=== PATIENT | female | born 1965 | race Caucasian/White ===

== ENCOUNTER 2018-11-13 11:34 | Emergency (ER) | payer OTHER, SELFPAY ==
[2018-11-13 11:46] VITALS: BP 91/66; PULSE 65; RESP 16; TEMP 36.5; O2SAT 96
--- NOTE | 2018-11-13 12:08 | DI.RAD_ITS ---
SYMPTOM/DIAGNOSIS: RT DISTAL ULNAR LESION, PAIN RIGHT WRIST: Three views were obtained. No fracture is seen. Bony alignment is within normal limits.
--- NOTE | 2018-11-13 12:14 | W.ED.GENAD ---
Discharge Plan Disposition Patient Disposition: HOME Condition: Good Discharge Details Chief Complaint: Orthopedic Clinical Impression: Arthritis of wrist Primary Care Provider: Hyacinth,Local ED Provider: Arturo Raymundo Home Meds and New Rx's Prescriptions: No Action trazodone 50 mg Tablet 50 mg PO QHS PRNRF: 0 levothyroxine [Synthroid] 100 mcg Tablet 100 mcg PO DAILY RF: 0 Discharge Instructions Instructions: Arthritis (ED) Additional Instructions: Please use Tylenol and Motrin as needed for pain. Please use the wrist splint as directed. Please follow-up in outpatient basis with an orthopedic doctor. You notice any worsening of her symptoms or any new symptoms such as fever, chills, swelling, redness please return immediately for reassessment. As always is a pleasure participating in your care today. Medical Decision Making This is a pleasant 52-year-old female with no significant past medical history who presents today for evaluation of mild occasional pain at the distal aspect of her right dominant hand at the ulna. Exam demonstrates no evidence of significant bony deformity or abnormality. No severe crepitus. No evidence of gout. No evidence of erythema suggestive of infection. Signs and symptoms very consistent with mild arthritis. We will get an x-ray to rule out acute fracture or cyst we will place the patient in a wrist splint, and recommend close outpatient follow-up. 2:15 PM X-ray results have returned, no evidence of acute fracture. Patient is still very concerned about her wrist pain, she is in the splint and this route does provide some relief. Recommend continued conservative management with NSAIDs and wrist splint, and if her symptoms do not improve with this and outpatient follow-up with orthopedics. 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 I have extensively reviewed the treatment plan and discharge instructions with the patient and their family. I have addressed all patient concerns at this time. The patient and family was made aware of what symptoms to monitor for that would warrant a return to the emergency department. Discussed the plan with the patient and family, they demonstrate verbal understanding and agreement with our assessment and plan at this time. TECHNIQUE: Imaging protocol: XR Right wrist. Views: 3 or more views. COMPARISON: No relevant prior studies available. FINDINGS: Bones/joints: There is no evidence of acute fracture.. There is no evidence of malalignment or dislocation. Soft tissues: Normal. IMPRESSION: There is no evidence of acute fracture.. Thank you for allowing us to participate in the care of your patient. Dictated and Authenticated by: David Timmons MD [facility] General Date/Time Provider Initiated Documentation: 11/13/18 11:41. HPI Narrative: This is a 52-year-old female with no significant past medical history except for tyroid disease, who presents today for evaluation of lesion on her right distal ulna. The patient states that for the last month or 2 she has noticed some mild achiness in the medial aspect of her distal ulna worse with movement, and only occasional presenting itself. No particular aggravating factors. She is right-hand dominant. She denies any trauma or other lesions. She has noticed a small bulge at the distal ulna, and is unsure when this came about. She denies any fever, chills, or other complaints. Related Data Home Medications Medication Instructions Recorded Confirmed levothyroxine [Synthroid] 100 mcg PO DAILY 11/13/18 11/13/18 trazodone 50 mg PO QHS PRN 11/13/18 11/13/18 Allergies Allergy/AdvReac Type Severity Reaction Status Date / Time Sulfa (Sulfonamide Allergy Unknown Unverified 11/13/18 11:51 Antibiotics) General Stated Complaint: Orthopedic ASHISH: 4 Review of Systems Review of Systems All systems reviewed & are unremarkable except as noted in HPI and below PFSH Social History Smoking/Tobacco Use Status: Former Tobacco Use Alcohol Intake: current Alcohol Intake frequency: a few times a month Alcohol type: wine Drug use: Never Do you feel safe at home: Yes Do you feel safe in your relationship?: Yes Exam Narrative Exam Narrative: 1.Const: Well-nourished, Well-developed, appearing stated age 2.Eyes: PERRL, no conjunctival injection, and symmetrical lids. 3.ENT: Atraumatic external nose and ears. Moist MM. Neck: Symmetric, trachea midline, No thyromegaly. 4.CVS: +S1/S2, No murmurs or gallops. Peripheral pulses 2+ and equal in all extremities. Brisk capillary refill in all extremities. 5.RESP: Unlabored respiratory effort. Clear to auscultation bilaterally. No wheezes rales or rhonchi 6.GI: Soft, Nontender/Nondistended, No hepatosplenomegaly. No guarding or rebound. 7.MSK: Normocephalic/Atraumatic, Extremities w/o deformity or ttp No cyanosis or clubbing, Normal movement of all extremities. Symmetrically palpable radial and ulnar pulses. Capillary refill less than 2 seconds to all digits. Right hand: Intact sensation to light touch of the radial, median and ulnar nerves demonstrated by testing in the dorsal web space of the thumb, the distal palmar aspect of the index finger, and the lateral surface of the fifth finger. 2 point discrimination intact to 5mm (up to 6mm can be normal in digits 3-5) of discrimination in the affected digit. Intact motor function of the radial, median and ulnar nerves demonstrated by strength of extension of the isolated distal joint of the index finger, hand rn immunology, and spreading of the 2nd through 5th digits. Intact recurrent median nerve as demonstrated by ability to move thumb fully through opposition, abduction and flexion. No snuffbox tenderness. No reproducible tenderness over the distal ulna. Distal ulna is slightly more pronounced compared to the distal ulna on the left peer 8.Skin: Warm, Dry. No rashes or lesions. 9.Neuro: biology manager II-XII grossly intact. Sensation grossly intact, no focal neurologic deficits. 10.Psych: (AAO) x3. Appropriate mood and affect Course Vital Signs Temperature 36.5 C 11/13/18 11:46 Pulse 65 11/13/18 11:46 Respiratory Rate 16 11/13/18 11:46 Blood Pressure 91/66 L 11/13/18 11:46 Pulse Oximetry 96 11/13/18 11:46 Temperature 36.5 C 11/13/18 11:46 Temperature Source Temporal Artery Scan 11/13/18 11:46 Pulse 65 11/13/18 11:46 Respiratory Rate 16 11/13/18 11:46 Respiratory Effort 11/13/18 11:50 Blood Pressure 91/66 L 11/13/18 11:46 Blood Pressure Position Sitting 11/13/18 11:46 Pulse Oximetry 96 11/13/18 11:46 Oxygen Delivery Method Room Air 11/13/18 11:46 Oxygen Flow Rate 0 11/13/18 11:46 Pain Level 4 11/13/18 11:53
--- NOTE | 2018-11-13 12:21 | ED.GENADUL_ITS ---
Discharge Plan Disposition Patient Disposition: HOME Condition: Good Discharge Details Chief Complaint: Orthopedic Clinical Impression: Arthritis of wrist Primary Care Provider: Hyacinth,Local ED Provider: Arturo Raymundo Home Meds and New Rx's Prescriptions: No Action trazodone 50 mg Tablet 50 mg PO QHS PRNRF: 0 levothyroxine [Synthroid] 100 mcg Tablet 100 mcg PO DAILY RF: 0 Discharge Instructions Instructions: Arthritis (ED) Additional Instructions: Please use Tylenol and Motrin as needed for pain. Please use the wrist splint as directed. Please follow-up in outpatient basis with an orthopedic doctor. You notice any worsening of her symptoms or any new symptoms such as fever, chills, swelling, redness please return immediately for reassessment. As always is a pleasure participating in your care today. Medical Decision Making This is a pleasant 52-year-old female with no significant past medical history who presents today for evaluation of mild occasional pain at the distal aspect of her right dominant hand at the ulna. Exam demonstrates no evidence of significant bony deformity or abnormality. No severe crepitus. No evidence of gout. No evidence of erythema suggestive of infection. Signs and symptoms very consistent with mild arthritis. We will get an x-ray to rule out acute fracture or cyst we will place the patient in a wrist splint, and recommend close outpatient follow-up. 2:15 PM X-ray results have returned, no evidence of acute fracture. Patient is still very concerned about her wrist pain, she is in the splint and this route does provide some relief. Recommend continued conservative management with NSAIDs and wrist splint, and if her symptoms do not improve with this and outpatient follow-up with orthopedics. 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 I have extensively reviewed the treatment plan and discharge instructions with the patient and their family. I have addressed all patient concerns at this time. The patient and family was made aware of what symptoms to monitor for that would warrant a return to the emergency department. Discussed the plan with the patient and family, they demonstrate verbal understanding and agreement with our assessment and plan at this time. TECHNIQUE: Imaging protocol: XR Right wrist. Views: 3 or more views. COMPARISON: No relevant prior studies available. FINDINGS: Bones/joints: There is no evidence of acute fracture.. There is no evidence of malalignment or dislocation. Soft tissues: Normal. IMPRESSION: There is no evidence of acute fracture.. Thank you for allowing us to participate in the care of your patient. Dictated and Authenticated by: David Timmons MD [facility] General Date/Time Provider Initiated Documentation: 11/13/18 11:41 . HPI Narrative: This is a 52-year-old female with no significant past medical history except for tyroid disease, who presents today for evaluation of lesion on her right distal ulna. The patient states that for the last month or 2 she has noticed some mild achiness in the medial aspect of her distal ulna worse with mo vement, and only occasional presenting itself. No particular aggravating factors. She is right-hand dominant. She denies any trauma or other lesions. She has noticed a small bulge at the distal ulna, and is unsure when this came about. She denies any fever, chills, or other complaints. Related Data Home Medications Medication Instructions Recorded Confirmed levothyroxine [Synthroid] 100 mcg PO DAILY 11/13/18 11/13/18 trazodone 50 mg PO QHS PRN 11/13/18 11/13/18 Allergies Allergy/AdvReac Type Severity Reaction Status Date / Time Sulfa (Sulfonamide Allergy Unknown Unverified 11/13/18 11:51 Antibiotics) General Stated Complaint: Orthopedic ASHISH: 4 Review of Systems Review of Systems All systems reviewed & are unremarkable except as noted in HPI and below PFSH Social History Smoking/Tobacco Use Status: Former Tobacco Use Alcohol Intake: current Alcohol Intake frequency: a few times a month Alcohol type: wine Drug use: Never Do you feel safe at home: Yes Do you feel safe in your relationship?: Yes Exam Narrative Exam Narrative: 1.Const: Well-nourished, Well-developed, appearing stated age 2.Eyes: PERRL, no conjunctival injection, and symmetrical lids. 3.ENT: Atraumatic external nose and ears. Moist MM. Neck: Symmetric, trachea midline, No thyromegaly. 4.CVS: +S1/S2, No murmurs or gallops. Peripheral pulses 2+ and equal in all extremities. Brisk capillary refill in all extremities. 5.RESP: Unlabored respiratory effort. Clear to auscultation bilaterally. No wheezes rales or rhonchi 6.GI: Soft, Nontender/Nondistended, No hepatosplenomegaly. No guarding or rebound. 7.MSK: Normocephalic/Atraumatic, Extremities w/o deformity or ttp No cyanosis or clubbing, Normal movement of all extremities. Symmetrically palpable radial and ulnar pulses. Capillary refill less than 2 seconds to all digits. Right hand: Intact sensation to light touch of the radial, median and ulnar nerves demonstrated by testing in the dorsal web space of the thumb, the distal palmar aspect of the index finger, and the lateral surface of the fifth finger. 2 point discrimination intact to 5mm (up to 6mm can be normal in digits 3-5) of discrimination in the affected digit. Intact motor function of the radial, median and ulnar nerves demonstrated by strength of extension of the isolated distal joint of the index finger, hand instructor psychiatric aide, and spreading of the 2nd through 5th digits. Intact recurrent median nerve as demonstrated by ability to move thumb fully through opposition, abduction and flexion. No snuffbox tenderness. No reproducible tenderness over the distal ulna. Distal ulna is slightly more pronounced compared to the distal ulna on the left peer 8.Skin: Warm, Dry. No rashes or lesions. 9.Neuro: equity manager II-XII grossly intact. Sensation grossly intact, no focal neurologic deficits. 10.Psych: (AAO) x3. Appropriate mood and affect Course Vital Signs Temperature 36.5 C 11/13/18 11:46 Pulse 65 11/13/18 11:46 Respiratory Rate 16 11/13/18 11:46 Blood Pressure 91/66 L 11/13/18 11:46 Pulse Oximetry 96 11/13/18 11:46 Temperature 36.5 C 11/13/18 11:46 Temperature Source Temporal Artery Scan 11/13/18 11:46 Pulse 65 11/13/18 11:46 Respiratory Rate 16 11/13/18 11:46 Respiratory Effort 11/13/18 11:50 Blood Pressure 91/66 L 11/13/18 11:46 Blood Pressure Position Sitting 11/13/18 11:46 Pulse Oximetry 96 11/13/18 11:46 Oxygen Delivery Method Room Air 11/13/18 11:46 Oxygen Flow Rate 0 11/13/18 11:46 Pain Level 4 11/13/18 11:53
--- NOTE | 2018-11-13 14:08 | DI.VRAD_ITS ---
EXAM: XR Right Wrist Complete, 3 or more Views EXAM DATE/TIME: 11/13/2018 12:10 PM CLINICAL HISTORY: 52 years old, female; Signs and symptoms; Other: Right distal ulnar lesion; Additional info: Right distal ulnar lesion, pain for 1 month TECHNIQUE: Imaging protocol: XR Right wrist. Views: 3 or more views. COMPARISON: No relevant prior studies available. FINDINGS: Bones/joints: There is no evidence of acute fracture.. There is no evidence of malalignment or dislocation. Soft tissues: Normal. IMPRESSION: There is no evidence of acute fracture.. Dictated and Authenticated by: David Timmons MD. Ordering:SAILAJA Morris MD
== END 2018-11-13 14:13 | disposition home or self-care (01) ==
PROVIDERS: Emergency Provider Student in an Organized Health Care Education/Training Program
DX: M19.031 Primary osteoarthritis, right wrist (principal)
CPT/HCPCS: 29125; 99283; 73110; L3908

== ENCOUNTER 2019-02-27 11:07 | Emergency (ER) | payer OTHER, SELFPAY ==
[2019-02-27 11:18] VITALS: BP 107/73; PULSE 74; RESP 14; TEMP 36.8; O2SAT 96
--- NOTE | 2019-02-27 11:37 | ED.GENADUL_ITS ---
Discharge Plan Disposition Patient Disposition: HOME Condition: Stable Discharge Details Chief Complaint: Orthopedic Clinical Impression: Ankle injury Primary Care Provider: Hyacinth,Local ED Provider: Sherry Fuentes Home Meds and New Rx's Prescriptions: No Action trazodone 50 mg Tablet 50 mg PO QHS PRNRF: 0 levothyroxine [Synthroid] 100 mcg Tablet 100 mcg PO DAILY RF: 0 Discharge Instructions Instructions: Ankle Sprain (ED), Crutch Instructions (ED) Additional Instructions: Please return immediately to the emergency department if you develop any new or worsening symptoms or if you become otherwise concerned. It is extremely important that you call as soon as possible to make an appointment to be seen in follow-up for this visit by your primary care doctor. Discharge Data Discharge Date/Time-TO BE ENTERED AT DEPARTURE: 02/27/19 13:21 Medical Decision Making Elder Pierce is a 53 y/o woman with h/o thyroid disease who presented to the emergency department with left ankle pain after inverting her ankle at 8 AM this morning, she has continued to be weightbearing. On exam patient is well and nontoxic, there is tenderness and edema of the left lateral ankle and dorsal aspect of the left foot. Concern for possible fracture versus sprain. Plan for x-rays ankle and foot. X-rays negative for fracture. Plan for ankle brace, crutches. I had a lengthy discussion with the patient regarding return to emergency department precautions, home care, importance of outpatient follow-up. Patient verbalized understanding the plan was amenable. All questions were answered. Patient was discharged home with clear plan for outpatient follow-up. Medical Records Medical records reviewed: Yes I reviewed the patient's medical records. Imaging Data Radiologic Study: Attestation: I personally reviewed and interpreted this imaging study as follows: Radiologist's impression: LEFT ANKLE: Three views were obtained. The ankle mortise appears well maintained. No fracture is seen. LEFT FOOT: Three views were obtained. There are ossific densities adjacent to the lateral aspect of the cuboid which are likely to represent chronic findings. No acute fracture is seen involving the foot. HPI General Mode of arrival: ambulatory . Date/Time Provider Initiated Documentation: 02/27/19 11:37 . Limitations to Documentation: no limitations . Information obtained by: patient, RN notes reviewed and old records reviewed . HPI Narrative: Elder Pierce is a 53 y/o woman with h/o thyroid disease presenting to the emergency room with ankle pain. Patient reports that at approximately 8 AM this morning she stepped forward and inverted her left ankle. Patient reports that she had sudden onset of pain over the top of her foot and over the lateral aspect of her left ankle. She did not fall, she denies any other injury or pain. Patient reports that she has been walking since that time, however her pain has been increasing. She denies swelling other than to the left ankle, skin wound, any symptoms prior to the inversion, numbness, weakness, skin rash. Patient reports that she was previously very well in her usual state of health. Patient denies having symptoms prior to stepping funny, that rolling her foot was mechanical secondary to uneven ground. Related Data Home Medications Medication Instructions Recorded Confirmed levothyroxine [Synthroid] 100 mcg PO DAILY 11/13/18 02/27/19 trazodone 50 mg PO QHS PRN 11/13/18 02/27/19 Allergies Allergy/AdvReac Type Severity Reaction Status Date / Time Sulfa (Sulfonamide Allergy Unknown Unverified 02/27/19 11:23 Antibiotics) General Stated Complaint: Orthopedic ASHISH: 4 Review of Systems Review of Systems Constitutional: denies fevers Eyes: denies eye pain ENT: denies facial pain, sore throat Cardiovascular: denies chest pain Respiratory: denies SOB GI: denies abdominal pain, vomiting : denies flank pain MSK: denies back pain, neck pain, reports left ankle pain Skin: denies rash Neuro: denies headaches, numbness, weakness [facility] Social History Smoking/Tobacco Use Status: Former Tobacco Use Alcohol Intake: current Alcohol Intake frequency: a few times a month Alcohol type: wine Drug use: Never Do you feel safe at home: Yes Do you feel safe in your relationship?: Yes Exam Narrative Exam Narrative: Constitutional: well and [id number], pleasant, convers ing normally HENT: head atraumatic/normocephalic/normal inspection, mucous membranes moist Eyes: conjunctiva normal, sclera normal, pupils 3mm b/l Neck: no stridor, normal ROM, trachea midline Resp: normal work of breathing Cardio: normal rate, normal rhythm Skin: warm, dry, normal color, no rash Neuro: alert, not altered, grossly non-focal, normal tone Ext: Edema over the lateral aspect of the left ankle and dorsal aspect of the left foot, mild ecchymosis over the left lateral ankle. DP pulses intact and symmetric. Brisk cap refill of the toes. Normal range of motion of the toes. Range of motion of left ankle somewhat limited secondary to pain. No tenderness palpation of the proximal tibia/fibula. No apparent skin wound. Psych: normal mood, normal affect, normal behavior Course Vital Signs Temperature 36.8 C 02/27/19 11:18 Pulse 74 02/27/19 11:18 Respiratory Rate 14 02/27/19 11:18 Blood Pressure 107/73 02/27/19 11:18 Pulse Oximetry 96 02/27/19 11:18 Temperature 36.8 C 02/27/19 11:18 Temperature Source Skin 02/27/19 11:18 Pulse 74 02/27/19 11:18 Respiratory Rate 14 02/27/19 11:18 Respiratory Effort 02/27/19 11:23 Blood Pressure 107/73 02/27/19 11:18 Blood Pressure Position Sitting 02/27/19 11:18 Pulse Oximetry 96 02/27/19 11:18 Oxygen Delivery Method Room Air 02/27/19 11:18 Oxygen Flow Rate 0 02/27/19 11:18 Pain Level 4 02/27/19 11:18 Comment ice after injury and took 1 aleve 45 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
--- NOTE | 2019-02-27 11:47 | DI.RAD_ITS ---
SYMPTOM/DIAGNOSIS: TRAUMA,LT ANKLE PAIN,LT FOOT PAIN LEFT ANKLE: Three views were obtained. The ankle mortise appears well maintained. No fracture is seen. LEFT FOOT: Three views were obtained. There are ossific densities adjacent to the lateral aspect of the cuboid which are likely to represent chronic findings. No acute fracture is seen involving the foot.
== END 2019-02-27 13:21 | disposition home or self-care (01) ==
PROVIDERS: Emergency Provider Student in an Organized Health Care Education/Training Program
DX: S99.912A Unspecified injury of left ankle, initial encounter (principal); X50.9XXA Other and unspecified overexertion or strenuous movements or postures, initial encounter
CPT/HCPCS: 29515; 99284; 73610; 73630; 99283; E0114; L1902

== ENCOUNTER 2020-01-24 15:18 | Emergency (ER) | payer OTHER, SELFPAY ==
[2020-01-24 15:22] VITALS: BP 104/66; PULSE 81; RESP 16; TEMP 36.7; O2SAT 98
--- NOTE | 2020-01-24 15:30 | DI.RAD_ITS ---
EXAM: XR TOE LT SECOND CLINICAL HISTORY: L 2nd toe pain TECHNIQUE: COMPARISON: No exams were available for comparison FINDINGS: Three views were obtained. There is soft tissue swelling of the 2nd. Toe. There is no evidence of fracture. No erosive process seen. IMPRESSION:
--- NOTE | 2020-01-24 15:59 | W.ED.GENAD ---
Discharge Plan Disposition Patient Disposition: HOME Condition: Stable Discharge Details Chief Complaint: Orthopedic Clinical Impression: Pain and swelling of toe of left foot Primary Care Provider: Hyacinth,Local ED Provider: Alexa Muller Home Meds and New Rx's Prescriptions: New cephalexin [Keflex] 500 mg capsule 500 mg PO QID 7 Days Qty: 28 RF: 0 hydrocortisone 2.5 % ointment 1 applic TP BID Qty: 28.35 RF: 0 Continued trazodone 50 mg Tablet 50 mg PO QHS PRNRF: 0 levothyroxine [Synthroid] 100 mcg Tablet 100 mcg PO DAILY RF: 0 Discharge Instructions Instructions: Swollen Joint (ED) Additional Instructions: Rest and elevate the affected area as much as possible. Avoid wearing shoes while symptoms present and wear sandals or keep the area open to air as much as possible. Alternate tylenol and motrin as needed and directed for pain. If you have no relief or worsening of toe pain, redness or swelling, you can start the oral antibiotics. Call the transaction processor Dr. Mirza''s office tomorrow to schedule a follow-up appointment for reevaluation. Referrals: Fly Mirza DPM [[facility] STAFF PHYSICIAN] - Discharge Data Discharge Physician: Alexa Muller Medical Decision Making 54-year-old female presents with left second toe pain and swelling for the past month. Denies fever. Left second toe with minimal edema and tenderness to palpation. No erythema, ecchymosis, rash or lesions. Does not appear consistent with cellulitis. No deformity. She appears nontoxic. Referred for x-ray which noted soft tissue swelling but no other acute findings. Discussed with patient that differential diagnosis includes early cellulitis, neuropathy, stress fracture, tinea pedis, etc. Do not see an indication for labs or imaging. Will give a prescription for Keflex if symptoms do not improve or worsen. She was advised to call Dr. Mirza for follow-up. Patient also requested a prescription for hydrocortisone ointment for a chronic hand rash. There is no evidence of cellulitis. HPI General Mode of arrival: ambulatory. Date/Time Provider Initiated Documentation: 01/24/20 15:18. Limitations to Documentation: no limitations. Information obtained by: patient. HPI Narrative: Patient is a 54-year-old female who presents the ED with complaint of left second toe pain and swelling for the past month, getting progressively worse. She states it is most uncomfortable when she is wearing a shoe and it is rubbing up against it. She denies any known fever, injury, new exposures. Related Data Home Medications Medication Instructions Recorded Confirmed levothyroxine [Synthroid] 100 mcg PO DAILY 11/13/18 01/24/20 trazodone 50 mg PO QHS PRN 11/13/18 01/24/20 cephalexin [Keflex] 500 mg PO QID 7 Days #28 cap 01/24/20 hydrocortisone 1 applic TP BID #28.35 gm 01/24/20 Previous Rx's Medication Instructions Recorded cephalexin [Keflex] 500 mg PO QID 7 Days #28 cap 01/24/20 hydrocortisone 1 applic TP BID #28.35 gm 01/24/20 Allergies Allergy/AdvReac Type Severity Reaction Status Date / Time Sulfa (Sulfonamide Allergy Unknown Unverified 01/24/20 15:26 Antibiotics) General Stated Complaint: Orthopedic ASHISH: 4 Review of Systems All systems reviewed & are unremarkable except as noted in HPI and below Constitutional Constitutional: Reports as per HPI, Denies chills and Denies fever(s) Eyes Eyes: Denies blurry vision ENT Ears, Nose, Mouth, and Throat: Denies dizziness, Denies sore throat and Denies throat swelling Cardiovascular Cardiovascular: Denies chest pain and Denies dyspnea Respiratory Respiratory: Denies cough and Denies dyspnea Gastrointestinal Gastrointestinal: Denies abdominal pain, Denies diarrhea and Denies vomiting Genitourinary Genitourinary: Denies hematuria and Denies dysuria Musculoskeletal Musculoskeletal: Denies back pain and Denies numbness Integumentary/Breasts Skin/Breast: Denies lesions and Denies rash Neurologic Neurologic: Denies dizziness, Denies localized weakness and Denies numbness Allergic/Immunologic Allergic/Immunologic: Denies throat swelling [facility] Medical History (Updated 01/24/20 @ 16:33 by Alexa Muller DO) Hypothyroidism (Chronic) Social History Smoking/Tobacco Use Status: Former Tobacco Use Alcohol Intake: current Alcohol Intake frequency: a few times a month Alcohol type: wine Drug use: Never Substance use type: does not use Do you feel safe at home: Yes Do you feel safe in your relationship?: Yes Exam Const General: cooperative, healthy appearing and no acute distress HENMT Head: normal to inspection Mouth: oral mucosae normal Eyes General: appearance normal, both eyes and all related structures Neck Neck: normal visual inspection Resp Effort & Inspection: normal respiratory effort and able to speak in complete sentences Cardio Rate: regular rate Skin General skin exam: no rashes or lesions noted Neuro General: patient alert, patient awake, patient oriented x3 and no focal motor deficits Motor: muscle tone normal throughout Sensory Exam: no sensory deficits noted Extrem Ankle/foot/toe images: 1. Minimal edema and tenderness to palpation noted to distal left second toe there is some minimal skin breakdown but no significant scaling, rash, lesions, erythema, ecchymosis. Psych Appearance: grossly normal Affect: normal affect Course Vital Signs Vital signs: Vital Signs Temperature 98.1 F 01/24/20 15:22 Pulse 81 01/24/20 15:22 Respiratory Rate 16 01/24/20 15:22 Blood Pressure 104/66 01/24/20 15:22 Pulse Oximetry 98 01/24/20 15:22 Temperature 98.1 F 01/24/20 15:22 Temperature Source Skin 01/24/20 15:22 Pulse 81 01/24/20 15:22 Respiratory Rate 16 01/24/20 15:22 Respiratory Effort Non-Labored 01/24/20 15:22 Blood Pressure 104/66 01/24/20 15:22 Blood Pressure Position Sitting 01/24/20 15:22 Pulse Oximetry 98 01/24/20 15:22 Oxygen Delivery Method Room Air 01/24/20 15:22 Oxygen Flow Rate 0 01/24/20 15:22 Pain Level 10 01/24/20 15:22
--- NOTE | 2020-01-24 16:13 | DI.VRAD_ITS ---
PROCEDURE INFORMATION: Exam: XR Left Toe(s) Exam date and time: 01/24/2020 4:07 PM Age: 54 years old Clinical indication: Other: Lt 2nd toe pain TECHNIQUE: Imaging protocol: XR Left toes. Views: Minimum 2 views. COMPARISON: CR XR ANKLE LT COMPLETE 02/27/2019 12:32 PM FINDINGS: Bones/joints: Normal. Soft tissues: Soft tissue edema. IMPRESSION: Soft tissue edema. No fractures. No osteomyelitis. Dictated and Authenticated by: Kori Mancia MD. Ordering:CHERY Liu MD
== END 2020-01-24 17:00 | disposition home or self-care (01) ==
PROVIDERS: Emergency Provider Physician Assistant
DX: M79.675 Pain in left toe(s) (principal); M79.89 Other specified soft tissue disorders
CPT/HCPCS: 99283; 73660

== ENCOUNTER 2022-01-22 07:56 | Emergency (ER) | payer OTHER, SELFPAY ==
[2022-01-22 08:16] VITALS: BP 91/64; PULSE 64; RESP 16; TEMP 36.8; O2SAT 98
--- NOTE | 2022-01-22 08:53 | DI.RAD_ITS ---
Exam(s) XR FINGER RT INDEX EXAM: XR FINGER RT INDEX CLINICAL HISTORY: finger laceration over pip joint, now swollen/pain. TECHNIQUE: 2D digital imaging was performed of the right finger. Three views were obtained. PA/AP, oblique, and lateral views were obtained. COMPARISON: No exams were available for comparison FINDINGS: BONES: No acute fracture is present. No bony destructive lesion is seen. JOINTS: No dislocation present. SOFT TISSUE: Normal. IMPRESSION: No evidence of acute fracture, dislocation, or subluxation. DATA REPOSITORY: RADIATION DOSE DELIVERED:
[2022-01-22] MEDS: Tetanus & Diphtheria Tox,ADULT 0.5 ML VIAL IM (09:23)
--- NOTE | 2022-01-22 15:17 | W.ED.GENAD ---
Discharge Plan Disposition Patient Disposition: HOME Condition: Stable Discharge Details Clinical Impression: Cellulitis, Finger laceration Primary Care Provider: Hyacinth,Local ED Provider: Ruby Cooper Home Meds and New Rx's Prescriptions: New cephalexin 500 mg capsule 500 mg PO Q6H 7 Days Qty: 28 0RF Continued hydrocortisone 2.5 % ointment 1 applic TP BID Qty: 28.35 0RF alprazolam 0.5 mg tablet 0.5 mg PO PRN PRN Label Comments: TAKE ONE TABLET BY MOUTH EVERY DAY rizatriptan 10 mg tablet,disintegrating 10 mg PO PRN PRN trazodone 50 mg Tablet 50 mg PO QHS PRN levothyroxine [Synthroid] 100 mcg Tablet 100 mcg PO DAILY Discharge Instructions Instructions: Cellulitis (ED), Finger Laceration (ED) Additional Instructions: keep splint in place call ortho if you don't hear from them tomorrow take antibiotic yogurt daily while on antibiotic return earlier with new or worsening complaints Referrals: Marques Begum MD [ [facility] STAFF PHYSICIAN] - Discharge Data Discharge Date/Time-TO BE ENTERED AT DEPARTURE: 01/22/22 14:28 Medical Decision Making X-ray does not show evidence of acute abnormality Placed on Keflex and referral to orthopedics Patient has mildly decreased flexion of her finger, likely secondary to soft tissue swelling there is concern for intra-articular injury Will start patient on Keflex and placed in splint and referred to orthopedics for reassessment Afebrile and nontoxic Medical Records Medical records reviewed: Yes I reviewed the patient's medical records. HPI General Date/Time Provider Initiated Documentation: 01/22/22 08:18. HPI Narrative: This 56-year-old female presents with right finger pain. She is she received a laceration approximately 3 weeks ago on a piece of plastic that was in the trash. Patient reportedly cleaned wound and splinted it. She states it started becoming red and more painful in the past 3 days. She has any fever or chills. Unsure regarding tetanus. Related Data Home Medications Medication Instructions Recorded Confirmed levothyroxine 100 mcg tablet 100 mcg PO DAILY 11/13/18 01/22/22 (Synthroid) trazodone 50 mg tablet 50 mg PO QHS PRN 11/13/18 01/22/22 hydrocortisone 2.5 % topical 1 applic topical BID #28.35 grams 01/24/20 01/22/22 ointment alprazolam 0.5 mg tablet 0.5 mg PO PRN PRN 01/22/22 01/22/22 cephalexin 500 mg capsule 500 mg PO Q6H 7 days #28 caps 01/22/22 rizatriptan 10 mg disintegrating 10 mg PO PRN PRN 01/22/22 01/22/22 tablet Previous Rx's Medication Instructions Recorded hydrocortisone 2.5 % topical 1 applic topical BID #28.35 grams 01/24/20 ointment cephalexin 500 mg capsule 500 mg PO Q6H 7 days #28 caps 01/22/22 Allergies Allergy/AdvReac Type Severity Reaction Status Date / Time Sulfa (Sulfonamide Allergy Unknown Unverified 01/22/22 08:23 Antibiotics) General Stated Complaint: Orthopedic ASHISH: 4 Review of Systems All systems reviewed & are unremarkable except as noted in HPI and below PFSH All Active Problems Cellulitis (Acute) Finger laceration (Acute) Medical History Hypothyroidism Social History Smoking/Tobacco Use Status: Former Tobacco Use Smoking risk assessment performed?: Yes Alcohol Intake: current Alcohol Intake frequency: a few times a month Alcohol type: wine Drug use: Never Substance use type: does not use Do you feel safe at home: Yes Do you feel safe in your relationship?: Yes Exam Const General: cooperative, comfortable and no acute distress Extrem Hand/finger images: 1. Swelling, tenderness, mildly decreased range of motion, brisk cap refill distally, sensation intact distally, no lymphangitis or crepitus Course Vital Signs Vital signs: Vital Signs Temperature 36.8 C 01/22/22 08:16 Pulse 64 01/22/22 08:16 Respiratory Rate 16 01/22/22 08:16 Blood Pressure 91/64 L 01/22/22 08:16 Pulse Oximetry 98 01/22/22 08:16 Temperature 36.8 C 01/22/22 08:16 Pulse 64 01/22/22 08:16 Respiratory Rate 16 01/22/22 08:16 Respiratory Effort 01/22/22 08:25 Blood Pressure 91/64 L 01/22/22 08:16 Pulse Oximetry 98 01/22/22 08:16 Pain Level 1 01/22/22 08:25 Comment 01/22/22 08:16
== END 2022-01-22 14:28 | disposition home or self-care (01) ==
PROVIDERS: Emergency Provider Physician Assistant
DX: L03.011 Cellulitis of right finger (principal); S61.210A Laceration without foreign body of right index finger without damage to nail, initial encounter; Z87.891 Personal history of nicotine dependence; W26.8XXA Contact with other sharp object(s), not elsewhere classified, initial encounter
CPT/HCPCS: 29130; 90471; 99283; 73140

== ENCOUNTER 2022-01-29 13:26 | Emergency (ER) | payer OTHER, SELFPAY ==
[2022-01-29 13:44] VITALS: BP 95/65; PULSE 70; RESP 16; TEMP 37.3; O2SAT 99
--- NOTE | 2022-01-29 14:08 | ED.GENADUL_ITS ---
Discharge Plan Disposition Patient Disposition: HOME Condition: Stable Discharge Details Clinical Impression: Encounter for wound re-check Primary Care Provider: HyacinthLocal ED Provider: Gia Gardner Home Meds and New Rx's Prescriptions: New clindamycin HCl 150 mg capsule 450 mg PO TID 7 Days Qty: 63 0RF No Action hydrocortisone 2.5 % ointment 1 applic TP BID Qty: 28.35 0RF alprazolam 0.5 mg tablet 0.5 mg PO PRN PRN Label Comments: TAKE ONE TABLET BY MOUTH EVERY DAY rizatriptan 10 mg tablet,disintegrating 10 mg PO PRN PRN trazodone 50 mg Tablet 50 mg PO QHS PRN levothyroxine [Synthroid] 100 mcg Tablet 100 mcg PO DAILY cephalexin 500 mg capsule 500 mg PO 4XD Label Comments: TAKE ONE CAPSULE BY MOUTH EVERY 6 HOURS Discharge Instructions Instructions: Cellulitis (ED) Additional Instructions: Please start the clindamycin after finishing the cephalexin. Please take it with yogurt or probiotic. Please take Tylenol or Ibuprofen with food every 4-6 hours as needed for pain and swelling. Medical Decision Making We will give patient clindamycin. HPI General Mode of arrival: ambulatory . Date/Time Provider Initiated Documentation: 01/29/22 13:29 . Limitations to Documentation: no limitations . Information obtained by: patient, RN notes reviewed and old records reviewed . HPI Narrative: 56-year-old female presents for recheck of her right index finger after being seen here approximately a week ago and prescribed cephalexin for cellulitis. Patient had a laceration noted to the dorsum of her right finger. She reports is still red and swollen and tender with flexion. She is on her last day of cephalexin. Related Data Home Medications Medication Instructions Recorded Confirmed levothyroxine 100 mcg tablet 100 mcg PO DAILY 11/13/18 01/29/22 (Synthroid) trazodone 50 mg tablet 50 mg PO QHS PRN 11/13/18 01/29/22 hydrocortisone 2.5 % topical 1 applic topical BID #28.35 grams 01/24/20 01/29/22 ointment alprazolam 0.5 mg tablet 0.5 mg PO PRN PRN 01/22/22 01/29/22 rizatriptan 10 mg disintegrating 10 mg PO PRN PRN 01/22/22 01/29/22 tablet cephalexin 500 mg capsule 500 mg PO 4XD 01/29/22 01/29/22 clindamycin HCl 150 mg capsule 450 mg PO TID 7 days #63 caps 01/29/22 Previous Rx's Medication Instructions Recorded hydrocortisone 2.5 % topical 1 applic topical BID #28.35 grams 01/24/20 ointment clindamycin HCl 150 mg capsule 450 mg PO TID 7 days #63 caps 01/29/22 Allergies Allergy/AdvReac Type Severity Reaction Status Date / Time Sulfa (Sulfonamide Allergy Unknown Unverified 01/29/22 13:47 Antibiotics) General Stated Complaint: Recheck ASHISH: 4 Review of Systems Integumentary/Breasts Skin/Breast: Reports as per HPI, Reports erythema, Reports skin pain and Reports skin swelling PFSH All Active Problems (Updated 01/29/22 @ 14:13 by Gia Gardner NP) Cellulitis (Acute) Finger laceration (Acute) Encounter for wound re-check (Acute) Medical History Hypothyroidism Social History Smoking/Tobacco Use Status: Former Tobacco Use Smoking risk assessment performed?: Yes Alcohol Intake: current Alcohol Intake frequency: a few times a month Alcohol type: wine Drug use: Never Substance use type: does not use Do you feel safe at home: Yes Do you feel safe in your relationship?: Yes Exam Extrem Right upper extremity: hand (Right index finger swelling, pain) Hand/finger images: 1. Mildly red, swollen area surrounding scar. Increased pain with flexion. No warmth Course Vital Signs Vital signs: Vital Signs Temperature 37.3 C 01/29/22 13:44 Pulse 70 01/29/22 13:44 Respiratory Rate 16 01/29/22 13:44 Blood Pressure 95/65 L 01/29/22 13:44 Pulse Oximetry 99 01/29/22 13:44 Temperature 37.3 C 01/29/22 13:44 Pulse 70 01/29/22 13:44 Respiratory Rate 16 01/29/22 13:44 Respiratory Effort 01/29/22 13:49 Blood Pressure 95/65 L 01/29/22 13:44 Pulse Oximetry 99 01/29/22 13:44 Pain Level 6 01/29/22 13:44 Comment 01/29/22 13:44
== END 2022-01-29 14:32 | disposition home or self-care (01) ==
PROVIDERS: Emergency Provider Registered Nurse Emergency
DX: S61.210D Laceration without foreign body of right index finger without damage to nail, subsequent encounter (principal); M79.89 Other specified soft tissue disorders; Z87.891 Personal history of nicotine dependence; X58.XXXD Exposure to other specified factors, subsequent encounter
CPT/HCPCS: 99283; 99284

== ENCOUNTER 2023-01-03 16:27 | Emergency (ER) | payer OTHER, SELFPAY ==
[2023-01-03 16:34] VITALS: BP 107/81; PULSE 82; RESP 20; TEMP 37.7; O2SAT 99
--- NOTE | 2023-01-03 16:45 | DI.RAD_ITS ---
Exam(s) XR FOOT LT COMPLETE EXAM: XR FOOT LT COMPLETE CLINICAL HISTORY: Injury R/O Fracture. TECHNIQUE: 2D digital imaging was performed of the left foot. Three images were obtained. AP, obli que and lateral views were obtained. COMPARISON: CR,XR XR TOE LT SECOND from 01/24/2020 FINDINGS: BONES: There is an acute overriding fracture of the shaft of the proximal phalanx of the 4th toe. Th ere is also now depression of the articular surface of the proximal phalanx of the 3rd toe. This was not present on the prior examination from 01/24/2020. No bony destructive lesion is seen. JOINTS: No dislocation present. SOFT TISSUE: Normal. IMPRESSION: 1. Acute mildly impacted fracture involving the proximal phalanx of the 4th toe. 2. New depression of the articular surface of the proximal phalanx of the 3rd toe. The acuity is ind eterminate. DATA REPOSITORY: RADIATION DOSE DELIVERED:
--- NOTE | 2023-01-03 16:46 | W.ED.GENAD ---
Discharge Plan Disposition Patient Disposition: Home Condition: Stable Discharge Details Clinical Impression: Closed fracture of fourth toe of left foot Primary Care Provider: Hyacinth,Local ED Provider: Gia Gardner Home Meds and New Rx's Prescriptions: Continued clindamycin HCl 150 mg capsule 450 mg PO TID hydrocortisone 2.5 % ointment 1 applic TP BID Qty: 28.35 0RF alprazolam 0.5 mg tablet 0.5 mg PO PRN PRN Patient Comments: TAKE ONE TABLET BY MOUTH EVERY DAY rizatriptan 10 mg tablet,disintegrating 10 mg PO PRN PRN trazodone 50 mg Tablet 50 mg PO QHS PRN levothyroxine [Synthroid] 100 mcg Tablet 100 mcg PO DAILY Discharge Instructions Instructions: Toe Fracture (ED) Additional Instructions: It appears you have broken the fourth toe. Please denny tape it to the adjacent toe daily. Wear the postop shoe as needed for comfort. Rest ice compression elevation. Please follow-up with orthopedics or podiatry in the next 1 to 2 weeks. Please take Tylenol or Ibuprofen with food every 4-6 hours as needed for pain and swelling. Referrals: Richard Macedo MD [ [facility] STAFF PHYSICIAN] - 2 weeks Discharge Data Discharge Date/Time-TO BE ENTERED AT DEPARTURE: 01/03/23 17:46 Medical Decision Making 27-year-old female presents to the ER with chief complaint left foot pain and contusion after kicking a little leg table yesterday. She does have fourth toe pain and contusion with surrounding ecchymosis. No obvious deformity. Distal CMS x-ray she did take some Profen last night. No other associated symptoms or complaints. No evidence of ankle injury. She does have a past medical history of hypothyroidism. X-ray of left foot ordered. Fracture noted fourth proximal phalanx. Patient denny taped and placed in a postop shoe instructed on home care and follow-up care she verbalized understanding. This text was generated using [employer] system, please disregard any oddities of phrase or misspellings. Imaging Data Radiologic Study: Imaging: X-Ray Radiologist's impression: TECHNIQUE: Imaging protocol: Radiologic exam of the left foot. Views: 3 or more views. COMPARISON: CR XR TOE LT SECOND 01/24/2020 4:06 PM FINDINGS: Bones/joints: Bone mineralization appears slightly decreased. There is an oblique fracture with minimal impaction involving the proximal phalanx of the 4th digit. No definite additional fractures seen. Soft tissues: Normal. IMPRESSION: Proximal phalangeal fracture 4th digit. Thank you for allowing us to participate in the care of your patient. Dictated and Authenticated by: Elly Adams MD HPI General Mode of arrival: ambulatory. Date/Time Provider Initiated Documentation: 01/03/23 16:38. Limitations to Documentation: no limitations. Information obtained by: patient, RN notes reviewed and old records reviewed. HPI Narrative: 27-year-old female presents to the ER with chief complaint left foot pain and contusion after kicking a little leg table yesterday. She does have fourth toe pain and contusion with surrounding ecchymosis. No obvious deformity. Distal CMS x-ray she did take some Profen last night. No other associated symptoms or complaints. No evidence of ankle injury. She does have a past medical history of hypothyroidism. Related Data Home Medications Medication Instructions Recorded Confirmed levothyroxine 100 mcg tablet 100 mcg PO DAILY 11/13/18 03/06/22 (Synthroid) trazodone 50 mg tablet 50 mg PO QHS PRN 11/13/18 03/06/22 hydrocortisone 2.5 % topical 1 applic topical BID #28.35 grams 01/24/20 03/06/22 ointment alprazolam 0.5 mg tablet 0.5 mg PO PRN PRN 01/22/22 03/06/22 rizatriptan 10 mg disintegrating 10 mg PO PRN PRN 01/22/22 03/06/22 tablet clindamycin HCl 150 mg capsule 450 mg PO TID 02/13/22 03/06/22 Previous Rx's Medication Instructions Recorded hydrocortisone 2.5 % topical 1 applic topical BID #28.35 grams 01/24/20 ointment Allergies Allergy/AdvReac Type Severity Reaction Status Date / Time Sulfa (Sulfonamide Allergy Mild Unverified 01/03/23 16:37 Antibiotics) General Stated Complaint: Orthopedic ASHISH: 4 Review of Systems All systems reviewed & are unremarkable except as noted in HPI and below Musculoskeletal Musculoskeletal: Reports as per HPI and Reports arthralgias Integumentary/Breasts Skin/Breast: Reports wounds PFSH All Active Problems (Updated 01/03/23 @ 17:13 by Gia Gardner NP) Closed fracture of fourth toe of left foot (Acute) Central slip extensor tendon injury (boutonniere) (Acute) RIF Medical History Hypothyroidism Social History Smoking/Tobacco Use Status: Former Tobacco Use Smoking risk assessment performed?: Yes Alcohol Intake: current Alcohol Intake frequency: a few times a month Alcohol type: wine Drug use: Never Substance use type: does not use Do you feel safe at home: Yes Do you feel safe in your relationship?: Yes Exam Extrem Left lower extremity: foot Details: ecchymosis dorsal 4th toe Details: single Ankle/foot/toe images: 1. Contusion, ecchymosis and swelling. Course Vital Signs Vital signs: Vital Signs Temperature 37.7 C H 01/03/23 16:34 Pulse 82 01/03/23 16:34 Respiratory Rate 20 01/03/23 16:34 Blood Pressure 107/81 01/03/23 16:34 Pulse Oximetry 99 01/03/23 16:34 Temperature 37.7 C H 01/03/23 16:34 Temperature Source Oral 01/03/23 16:34 Pulse 82 01/03/23 16:34 Respiratory Rate 20 01/03/23 16:34 Respiratory Effort Normal 01/03/23 16:38 Blood Pressure 107/81 01/03/23 16:34 Pulse Oximetry 99 01/03/23 16:34 Oxygen Delivery Method Room Air 01/03/23 16:34 Oxygen Flow Rate 0 01/03/23 16:34
--- NOTE | 2023-01-03 17:08 | DI.VRAD_ITS ---
PROCEDURE INFORMATION: Exam: XR Left Foot Exam date and time: 01/03/2023 4:58 PM Age: 57 years old Clinical indication: Injury or trauma; Other: Hit heavy object with foot; Blunt trauma; Left TECHNIQUE: Imaging protocol: Radiologic exam of the left foot. Views: 3 or more views. COMPARISON: CR XR TOE LT SECOND 01/24/2020 4:06 PM FINDINGS: Bones/joints: Bone mineralization appears slightly decreased. There is an oblique fracture with minimal impaction involving the proximal phalanx of the 4th digit. No definite additional fractures seen. Soft tissues: Normal. IMPRESSION: Proximal phalangeal fracture 4th digit. Dictated and Authenticated by: Elly Adams MD. Ordering:KENNETH Nielsen MD
[2023-01-03 17:45] VITALS: BP 116/74; PULSE 75; RESP 18; O2SAT 98
== END 2023-01-03 17:46 | disposition home or self-care (01) ==
LOC: ER 17:19
PROVIDERS: Emergency Provider Registered Nurse Emergency
DX: S92.502A Displaced unspecified fracture of left lesser toe(s), initial encounter for closed fracture (principal); W22.8XXA Striking against or struck by other objects, initial encounter
CPT/HCPCS: 99283; 73630